=== PATIENT | female | born 1980 | race Caucasian/White ===

== ENCOUNTER 2017-11-24 09:24 | Emergency (ER) | payer SELFPAY | END 2017-11-24 10:35 | disposition home or self-care (01) | LOC: ERS 09:24 | DX: M76.891 Other specified enthesopathies of right lower limb, excluding foot (principal); H10.9 Unspecified conjunctivitis | CPT/HCPCS: 99283 ==

== ENCOUNTER 2018-09-26 15:50 | Emergency (ER) | payer SELFPAY ==
--- NOTE | 2018-09-26 17:22 | RAD ---
TWO VIEWS OF THE CHEST: COMPARISON: 10/30/2005. HISTORY: Cough for 5 days. FINDINGS: Two views of the chest show normal sized cardiomediastinal silhouette. There is no evidence of consol idation, mass, or pleural effusion. The bones are unremarkable. IMPRESSION: No evidence of acute cardiopulmonary disease. POS: [facility]
== END 2018-09-26 17:10 | disposition home or self-care (01) ==
LOC: ERS 15:50
DX: J20.9 Acute bronchitis, unspecified (principal); R09.1 Pleurisy
CPT/HCPCS: 71046

== ENCOUNTER 2018-12-17 16:09 | Emergency (ER) | payer SELFPAY ==
[2018-12-17] MEDS ORDERED: Ketorolac Tromethamine 60 MG/2 ML VIAL ONE (17:24)
--- NOTE | 2018-12-17 18:32 | RAD ---
TWO VIEW CHEST: History: Cough. FINDINGS: Lungs appear clear. Heart and mediastinum unremarkable. The osseous structures are unremarkable. IMPRESSION: No acute findings. POS: [facility]
== END 2018-12-17 18:16 | disposition home or self-care (01) ==
LOC: ERS 16:09
DX: M94.0 Chondrocostal junction syndrome [Tietze] (principal); R09.1 Pleurisy
CPT/HCPCS: 71046; 96372; J1885

== ENCOUNTER 2018-12-19 04:36 | Emergency (ER) | payer SELFPAY ==
[2018-12-19 05:13] LABS: Bilirubin Negative (Negative); Blood, Urine Trace (Negative); Clarity CLEAR (Clear); Glucose, Urine (Dipstick) Negative (Negative); Leukocyte Negative (Negative); Nitrite Negative (Negative); Protein, Urine (Dipstick) Negative (Neg-Trace); Specific Gravity, Urine 1.017 (1.002-1.036); pH, Urine 6.5 (5.0-9.0)
[2018-12-19 05:14] LABS: Bacteria/HPF 1+ HPF (None Seen); Hyaline Casts/LPF 0-3 HYALINE CAST LPF (0-3 Hyaline); Pathc Cast-AUWi Flag 0.27 (0-2.49); WBC/HPF 0-3 HPF (0-3)
[2018-12-19 06:01] LABS: Pregnancy Test - Urine (BHCG) Negative (Negative); Pregu Control Background? CLEAR/WHITE (CLR/WHITE); Pregu Control Bar Appear? YES (CONTROL BAR); Specific Gravity 1.017 (1.002-1.036)
[2018-12-19 06:23] LABS: #Lymphocytes 1.3 thou/uL (1.20-3.40); #Monocytes 0.6 thou/uL (0.11-0.59); #Neutrophils 9.6 thou/uL (1.40-6.50); %Eosinophils 0.2 % (0.0-10.0); %Lymphocytes 11.2 % (21.0-51.0); %Monocytes 4.9 % (0.0-10.0); %Neutrophils 83.7 % (42.0-75.0); Hemoglobin 13.4 g/dL (12.0-16.0); Mean Corpuscular HGB CONC 33.5 g/dL (32.0-36.0); Mean Corpuscular Hemoglobin 31.2 pg (27.0-31.0); Mean Corpuscular Volume 93.2 fL (78.0-98.0); Mean Platelet Volume 8.6 fL (7.4-10.4); Platelet Count 176 thou/uL (130-400); RBC Distribution Width 12.3 % (11.5-14.5); White Blood Cell (WBC) Count 11.5 thou/uL (4.8-10.8)
[2018-12-19 06:46] LABS: ALT (SGPT) 15 U/L (8-55); AST (SGOT) 15 U/L (5-34); Albumin 4.4 g/dL (3.5-5.0); Alkaline Phosphatase 65 U/L (40-150); Anion Gap 11 mmol/L (10-20); BUN (Urea Nitrogen) 13 mg/dL (7.0-18.7); Bilirubin, Total 0.5 mg/dL (0.2-1.2); Calc. Creatinine Clearance 0 mL/min (70-130); Calcium 8.9 mg/dL (7.8-10.44); Carbon Dioxide 23 mmol/L (22-29); Chloride 107 mmol/L (98-107); Estimated GFR-MDRD Greater than 90; Globulin 3.2 g/dL (2.4-3.5); Glucose 111 mg/dL (70-105); Lipase 23 U/L (8-78); Potassium 3.6 mmol/L (3.5-5.1); Protein, Total 7.6 g/dL (6.0-8.3); Sodium 137 mmol/L (136-145)
[2018-12-19] MEDS ORDERED: Morphine 4 MG/ML VIAL ONE (07:48)
[2018-12-19] MEDS ORDERED: Ketorolac Tromethamine 30 MG/ML VIAL ONE (07:49)
[2018-12-19] MEDS ORDERED: Ondansetron PF 4 MG/2 ML Vial ONE (07:49)
--- NOTE | 2018-12-19 07:51 | CT ---
ABDOMEN AND PELVIS CT NONCONTRAST RENAL CALCULUS PROTOCOL: CLINICAL INDICATION: Flank pain. COMPARISON: No prior imaging comparisons are available. FINDINGS: No acute abnormalities are seen at the lung bases. There is no urolithiasis or obstructive uropathy. There is heterogeneity of the prominence of the uterus and adnexa as well as soft tissue prominence at the level of the vaginal vault, incompletely assessed. The urinary bladder is decompressed limit ing assessment. There is a large volume of retained fecal material throughout the colon. No free ai r is visualized. A small hypodensity at the left hepatic lobe is too small to definitively characterize. There is pro minent degenerative change at the lumbosacral junction. IMPRESSION: 1. No urolithiasis or obstructive uropathy. 2. Prominence and heterogeneity of the uterus and adnexa as well as prominent soft tissues of the va ginal vault. Recommend clinical correlation in this regard. Pelvic ultrasound may also be obtained for further assessment. 3. Constipation. 4. Evaluation otherwise limited on the basis of noncontrast technique. POS: [facility]
--- NOTE | 2018-12-19 08:23 | RAD ---
SINGLE VIEW OF THE CHEST: COMPARISON: None. HISTORY: Chest pain. FINDINGS: Single view of the chest shows a normal sized cardiomediastinal silhouette. There is no evidence of c onsolidation, mass, or pleural effusion. The bones are unremarkable. IMPRESSION: No evidence of acute cardiopulmonary disease. POS: [facility]
== END 2018-12-19 10:30 | disposition home or self-care (01) ==
LOC: ERS 04:36
DX: N12 Tubulo-interstitial nephritis, not specified as acute or chronic (principal)
CPT/HCPCS: 36415; 71045; 74176; 80053; 81003; 81015; 81025; 83690; 85025; 96361; 96374; 96375; J1885; J2270; J2405

== ENCOUNTER 2019-10-15 20:31 | Emergency (ER) | payer SELFPAY ==
[~2019-10-15 20:31] MED LIST: Iopamidol-370 76% 500 ML 1 ML ONE
[2019-10-15 20:51] LABS: #Basophils 0.1 thou/uL (0.0-0.2); #Eosinphils 0.4 thou/uL (0.0-0.7); #Lymphocytes 1.9 thou/uL (1.20-3.40); #Monocytes 0.7 thou/uL (0.11-0.59); #Neutrophils 6.1 thou/uL (1.40-6.50); %Basophils 0.7 % (0.0-1.0); %Eosinophils 4.4 % (0.0-10.0); %Lymphocytes 20.9 % (21.0-51.0); %Monocytes 7.9 % (0.0-10.0); Mean Corpuscular HGB CONC 32.7 g/dL (32.0-36.0); Mean Corpuscular Hemoglobin 30.1 pg (27.0-31.0); Mean Corpuscular Volume 91.9 fL (78.0-98.0); Mean Platelet Volume 8.3 fL (7.4-10.4); Platelet Count 194 thou/uL (130-400); RBC Distribution Width 12.1 % (11.5-14.5); Red Blood Cell (RBC) Count 4.32 mill/uL (4.20-5.40); White Blood Cell (WBC) Count 9.2 thou/uL (4.8-10.8)
[2019-10-15 21:15] LABS: ALT (SGPT) 17 U/L (8-55); AST (SGOT) 15 U/L (5-34); Albumin 4.5 g/dL (3.5-5.0); Alkaline Phosphatase 86 U/L (40-110); Anion Gap 6 mmol/L (10-20); BUN (Urea Nitrogen) 14 mg/dL (7.0-18.7); Bilirubin, Total 0.3 mg/dL (0.2-1.2); Calc. Creatinine Clearance 0 mL/min (70-130); Calcium 9.3 mg/dL (7.8-10.44); Carbon Dioxide 31 mmol/L (22-29); Chloride 102 mmol/L (98-107); Estimated GFR-MDRD 83; Globulin 2.9 g/dL (2.4-3.5); Glucose 102 mg/dL (70-105); Lipase 42 U/L (8-78); Potassium 3.1 mmol/L (3.5-5.1); Protein, Total 7.4 g/dL (6.0-8.3); Sodium 136 mmol/L (136-145)
[2019-10-15 22:39] LABS: Bacteria/HPF 4+ HPF (None Seen); Bilirubin Negative (Negative); Blood, Urine Trace (Negative); Clarity Clear (Clear); Glucose, Urine (Dipstick) Normal (Negative); Leukocyte 75 Leu/uL (Negative); Mucous/LPF Rare LPF (<2+); Nitrite Negative (Negative); Protein, Urine (Dipstick) Negative (Neg-Trace); Squamous Epithelial 0-3 HPF (0-3); Urobilinogen Normal mg/dL (Less than 2); WBC/HPF 21-50 HPF (0-3)
--- NOTE | 2019-10-15 23:03 | ULT ---
US Gallbladder RUQ HISTORY: Right upper quadrant pain Findings: Real-time imaging of the right upper quadrant shows a slightly contracted appearing gallbla dder without evidence of gallstones. The common duct is 5 mm. The liver measures 15.3 cm in length and shows no focal findings. Right kidney is normal in size and not obstructed. Pancreas is unremarkable. IMPRESSION: Mildly contracted gallbladder. It is possible that the patient has not been fasting. No g allstones are identified.
[2019-10-15] MEDS ORDERED: Morphine 4 MG/ML VIAL ONE (23:28)
[2019-10-15] MEDS ORDERED: Ketorolac Tromethamine 30 MG/ML VIAL ONE (23:29)
[2019-10-15] MEDS ORDERED: Ondansetron PF 4 MG/2 ML Vial ONE (23:29)
--- NOTE | 2019-10-16 00:02 | CT ---
CTA Angio Chest W WO Con HISTORY: Chest pain. Right-sided pain worse with deep breaths. COMPARISON: None. FINDINGS: The lungs are clear of any infiltrative process. No pleural effusions. No pulmonary nodules . No significant mediastinal or hilar adenopathy. The thoracic aorta is normal in caliber. There is good pulmonary artery opacification and no CT evide nce for pulmonary embolus. Please refer to the CT abdomen report concerning these findings. IMPRESSION: No CT evidence for pulmonary embolus.
--- NOTE | 2019-10-16 00:05 | CT ---
CT Abdomen Pelvis W Con HISTORY: Right-sided abdomen pain. COMPARISON: None. FINDINGS: The lung bases are clear. Hypodensity within the left lobe of the liver is most likely a small cyst. The spleen pancreas and ga llbladder regions appear unremarkable. Right and left adrenal glands and right and left kidneys are normal in size. No significant periaorti c or mesenteric adenopathy. No free fluid demonstrated. CT of pelvis performed with contrast enhancement: Small enhancing follicles seen involving the right adnexa. This appears partially collapsed. There is trace free fluid noted. The appendix is unremarkable. IMPRESSION: Small partially collapsed right ovarian follicle.
[2019-10-16] MEDS ORDERED: cefTRIAXone\\ROCEPHIN 1 GM VIAL ONE (00:27)
== END 2019-10-16 01:28 | disposition home or self-care (01) ==
LOC: ERS 20:31
DX: N12 Tubulo-interstitial nephritis, not specified as acute or chronic (principal); Z85.41 Personal history of malignant neoplasm of cervix uteri
CPT/HCPCS: 36415; 71275; 74177; 76705; 80053; 81003; 81015; 83690; 84484; 85025; 93005; 96361; 96365; 96375; J0696; J1885; J2270; J2405; Q9967

== ENCOUNTER 2021-02-15 18:41 | Emergency (ER) | payer SELFPAY ==
[2021-02-15] MEDS ORDERED: Lidocaine 1% (PF) 30 ML VIAL ONE (19:15)
[2021-02-15] MEDS ORDERED: Boostrix 0.5 ML (Tdap) VIAL ONE (19:38)
== END 2021-02-15 20:16 | disposition home or self-care (01) ==
LOC: ERS 18:41
DX: S61.211A Laceration without foreign body of left index finger without damage to nail, initial encounter (principal); X58.XXXA Exposure to other specified factors, initial encounter
CPT/HCPCS: 12001; 90471; 90715; J2001